=== PATIENT | male | born 1965 | race Caucasian/White ===

== ENCOUNTER 2017-05-03 10:54 | Day surgery (SDC) | payer OTHER ==
[2017-05-03] MEDS ORDERED: LACTATED RINGERS 1,000 ML IV ONE (11:15)
[2017-05-03] MEDS ORDERED: fentaNYL 100 MCG/2 ML VIAL IVP ONE (11:53)
[2017-05-03] MEDS ORDERED: MIDAZOLAM 2 MG/2 ML VIAL IVP ONE (11:53)
[2017-05-03 13:29] VITALS: BP 117/68
== END 2017-05-03 10:55 | disposition home or self-care (01) ==
LOC: SDS 10:54
PROVIDERS: ATTEND Surgery
PROC: 0DBN8ZX Excision of Sigmoid Colon, Via Natural or Artificial Opening Endoscopic, Diagnostic (ICD-10-PCS; principal; 2017-05-03 12:00)
DX: Z12.11 Encounter for screening for malignant neoplasm of colon (principal); D12.5 Benign neoplasm of sigmoid colon; I10 Essential (primary) hypertension; Z79.82 Long term (current) use of aspirin; Z87.891 Personal history of nicotine dependence
CPT/HCPCS: 45380; J7120

== ENCOUNTER 2023-04-27 09:12 | Outpatient (CLI) | payer OTHER ==
--- NOTE | 2023-04-27 17:21 | MRI Report ---
PROCEDURE: LUMBAR SPINE WO INDICATIONS: LUMBOSACRAL SPINAL STENOSIS TECHNIQUE: Noncontrast sagittal T1 spin echo and T2 fast echo, sagittal STIR, axial T1 and T2 fast spin echo thr ough the lumbar spine. In cases with scoliosis, additional coronal T2 fast spin echo may be performe d. COMPARISON: None. FINDINGS: Image quality: Excellent. Alignment and Curvature: There is trace retrolisthesis of L4 on L5. Bone Marrow: Marrow is of normal overall signal. Minimal reactive endplate changes are noted L4-5. No acute vertebral body compression fractures. Spinal Cord: Conus medullaris terminates at the L1 level. Visualized cord demonstrates normal signa l and size. Paraspinous Soft Tissues: No paravertebral masses. Simple bilateral renal cysts. Discs: Moderate desiccation present L4-5, minimal to mild L3-4. T12-L1: No disc bulge, spinal stenosis or foraminal narrowing. L1-L2: Mild disc bulge with mild spinal stenosis. Minimal bilateral foraminal narrowing with facet and ligamentum flavum hypertrophy. Overall appearance is stable. L2-L3: Mild disc bulge with mild to moderate spinal stenosis. Facet and ligamentum flavum hypertro phy are present as well as minimal epidural lipomatosis. Mild bilateral, right greater than left fora ana laura narrowing is present, minimally progressive on the left . Facet and ligamentum flavum hypertrop hy are present. Overall, stable interval exam. L3-L4: Mild disc bulge with moderate spinal stenosis. Moderate left and mild right foraminal narrow ing minimally progressive bilaterally. Facet and ligamentum flavum hypertrophy are present. L4-L5: Mild disc bulge with moderate spinal stenosis. Moderate bilateral foraminal narrowing right greater than left, stable. Facet and ligamentum flavum hypertrophy are present. L5-S1: Mild disc bulge without spinal stenosis or foraminal narrowing. No interval change. Facet an d ligamentum flavum hypertrophy. IMPRESSION: Multilevel degenerative changes with areas of progression as above. Multilevel spinal stenosis felt to be secondary to disc bulges with contributing effect of facet/liga ment of flavum arthropathy as well as epidural lipomatosis. However, short pedicles are noted also co ntributory towards spinal stenosis from a congenital aspect. Multilevel foraminal narrowing is present most notable at L4-5 secondary to facet arthropathy. Reviewed by: Mita Harris MD on 04/27/2023 5:20 PM PDT Approved by: Mita Harris MD on 04/27/2023 5:20 PM PDT Station ID: [id number]
== END 2023-04-27 09:13 | disposition home or self-care (01) ==
LOC: DI 09:12
PROVIDERS: ATTEND Orthopaedic Surgery Orthopaedic Surgery of the Spine
DX: M47.816 Spondylosis without myelopathy or radiculopathy, lumbar region (principal); M48.061 Spinal stenosis, lumbar region without neurogenic claudication; M51.36 Other intervertebral disc degeneration, lumbar region; M51.37 Other intervertebral disc degeneration, lumbosacral region

== ENCOUNTER 2023-06-28 06:24 | Day surgery (SDC) | payer OTHER ==
[2023-06-28] MEDS ORDERED: LACTATED RINGERS 1,000 ML IV ONE (06:39)
[2023-06-28] MEDS ORDERED: ceFAZolin 2 GM VIAL ONE (06:42)
[2023-06-28] MEDS ORDERED: BUPIVACAINE 0.5%-EPI 1:200000 PF 30 ML VIAL ONE (07:00)
[2023-06-28] MEDS ORDERED: BUPIVACAINE 0.5%-EPI 1:200000 PF 30 ML VIAL SUBQ ONE (07:02)
--- NOTE | 2023-06-28 07:06 | ANESTHESIA ---
Pre-Anesthesia VS, & Labs - Diagnosis right inguinal hernia - Procedure right inguinal hernia repair with mesh Vital Signs: Temp Pulse Resp BP Pulse Ox O2 Flow Rate 36.2 C L 62 14 136/82 H 98 06/28/23 06:39 06/28/23 06:39 06/28/23 06:39 06/28/23 06:39 06/28/23 06:39 Height: 6 ft Weight (kg): 92 kg Body Mass Index: 27.5 BMI Classification: Overweight - NPO >8 hours Home Medications and Allergies lisinopriL [Lisinopril] 20 mg PO DAILY 05/03/17 Allergies/Adverse Reactions: Allergies Allergy/AdvReac Type Severity Reaction Status Date / Time No Known Drug Allergies Allergy Verified 06/27/23 12:48 Anes History & Medical History - Anesthetic History Anesthesia Complications: reports: No previous complications - Medical History Cardiovascular: reports: Hypertension Pulmonary: reports: None Gastrointestinal: reports: None Urinary: reports: None Neuro: reports: None Musculoskeletal: reports: Osteoarthritis Endocrine/Autoimmune: reports: None Skin: reports: None Smoking Status: Never smoker Psychosocial: reports: Alcohol (2 drinks, 3x per week) History of Cancer?: No - Surgical History General: reports: Colonoscopy Eyes Ears Nose Throat (EENT): reports: Tonsil/Adenoidectomy Exam General: Alert, Oriented x3, Cooperative, No acute distress Dental: WNL Mouth Openin Fingerbreadth Neck Mobility: Normal Mallampati classification: I Thyromental Distance: 4-6 cm Mental/Cognitive Status: Alert/Oriented X3, Normal for patient Plan Anesthesia Type: General Consent for Procedure(s) Verified and Reviewed: Yes Code Status: Attempt Resuscitation ASA classification: 2-Mild systemic disease Is this case an emergency?: No
[2023-06-28] MEDS ORDERED: fentaNYL 100 MCG/2 ML VIAL ONE ×2 (07:22→08:11)
[2023-06-28] MEDS ORDERED: MIDAZOLAM 2 MG/2 ML VIAL ONE (07:22)
[2023-06-28] MEDS ORDERED: PROPOFOL 200 MG/20 ML VIAL IVP ONE (07:22)
[2023-06-28] MEDS ORDERED: DEXAMETHASONE 4 MG/ML VIAL ONE (07:51)
[2023-06-28] MEDS ORDERED: ONDANSETRON 4 MG/2 ML VIAL ONE (07:51)
[2023-06-28] MEDS ORDERED: NALOXONE 0.4 MG/ML VIAL IVP PRN (08:04)
[2023-06-28] MEDS ORDERED: fentaNYL 100 MCG/2 ML VIAL IVP PRN (08:04)
[2023-06-28] MEDS ORDERED: ONDANSETRON 4 MG/2 ML VIAL IVP PRN ×2 (08:04→09:47)
[2023-06-28] MEDS ORDERED: HYDROmorphone 0.5 MG/0.5 ML SYRINGE IVP PRN ×2 (08:04→09:47)
[2023-06-28] MEDS ORDERED: ATROPINE ABBOJECT 1 MG/10 ML SYRINGE IVP PRN (08:04)
[2023-06-28] MEDS ORDERED: MORPHINE 2 MG/ML CARPUJECT IVP PRN (08:04)
[2023-06-28] MEDS ORDERED: LACTATED RINGERS 800 ML IV ONE (08:56)
[2023-06-28] MEDS ORDERED: LACTATED RINGERS 1,000 ML IV SCH (09:00)
[2023-06-28 09:12] VITALS: O2SAT 98
--- NOTE | 2023-06-28 09:20 | OPERATIVE REPORT ---
Operative Report - General Procedure Date: 06/28/23 Planned Procedure: RIGHT inguinal herniorrhaphy Pre-Op Diagnosis: RIGHT inguinal hernia Procedure Performed: Indirect RIGHT inguinal herniorrhaphy and excision RIGHT cord lipoma Post Op Diagnosis: Indirect RIGHT inguinal hernia and cord lipoma - Procedure Note Primary Surgeon: Jc Reilly MD Anesthesia Provider: Amandeep Medina CRNA Anesthesia Technique: General LMA, Local (30 mL of half percent Marcaine with epinephrine) IV Fluids (mL): 1,100 Estimated Blood Loss (mL): 10 Drain/Tube Type: Other Complications: None. - Other Other Information/Narrative: After verbal and written informed consent was obtained detailing the operation, the alternatives the operation including no operation, risks of infection, bleeding requiring transfusion with its risks, nerve injury, and and after I met with the patient confirming the surgery and the site of surgery, the patient was brought to the operative suite and placed supine on the operating table. Great care was taken to avoid pressure points to prevent pressure necrosis or nerve injury. Monitoring devices were applied along with TEDs and pneumatic compression stockings (to prevent DVT). The patient received preoperative antibiotics for surgical prophylaxis. Amandeep Medina CRNA sedated and anesthetized the patient for the entire procedure. The patient was prepped and draped in the usual sterile manner. With the patient draped my initials were clearly visible. A "time in" then confirmed that the patient was identified with 3 identifiers (name, date, and medical record number), the history and physical was updated and in the chart, the signed consent confirming the procedure was in the chart, the patient was in the correct position, the aforementioned prophylactic measures were in place or given, we had the correct personnel and equipment to complete the procedure and that anesthesia and the surgical team were given an opportunity to express any concerns. With the agreement of everyone in the room we proceeded with the operation. A standard inguinal incision was made and dissection was carried down to the external oblique aponeurosis using a combination of Metzenbaum scissors and Bovie electrocautery. The external oblique aponeurosis was cleared of overlying adherent tissue, and the external ring was delineated. The external oblique was incised with a scalpel and this incision was carried down to the external ring using Metzenbaum scissors. Care was taken not to injure the ilioinguinal nerve. Having expose the inguinal canal, the cord structures were from the canal using blunt dissection and a Carlos Alberto drain was placed around the cord structures at the level of the pubic tubercle. This [place] drain was then used to retract the cord structures as needed. Adherent cremasteric muscle was dissected free from the cord using Bovie electrocautery. The cord was then explored using a combination of sharp and blunt dissection, and an indirect sac was found. The sac was then dissected back to the internal ring and high ligated with a 3-0 Vicryl suture. This was then transected the stump cauterized and allowed to retract back into the abdomen. A PerFix plug (ref#[id number], Lot#[id number], use by 2027-07-02) was then inserted into the internal ring and secured to the edge of the internal ring using a 2-0 PDS. Dissection along the cord structures found a lipoma that was dissected back to the internal ring, ligated with 3-0 Vicryl, transected, and the stump cauterized and allowed to retract back into the abdomen. The PerFix onlay patch was then secured to the pubic tubercle with a 2 0-PDS U stitch. The mesh was then secured to the conjoined tendon superiorly using interrupted 2-0 PDS sutures and secured to the shelving edge of Poupart's ligament inferiorly using interrupted 2-0 PDS sutures. The mesh was secured around the cord structures loosely with a 2-0 PDS suture thus creating a new internal ring. The Carlos Alberto drain was then removed. Meticulous hemostasis was obtained using Bovie electrocautery. The wound was then injected superficially and deep using 30 mL of half percent Marcaine with epinephrine. The incision the external oblique was approximated using 3-0 Vicryl in a running fashion thus reforming the external ring. The skin incision was approximated with 4-0 Monocryl in a subcuticular fashion. The skin was cleaned of its prep and Dermabond was applied. At this point a timeout was performed that confirmed that all counts were correct x2, the procedure that was performed, the blood loss, the IV fluids administered, the patient's condition, and any concerns of the operating team had. Having tolerated the procedure well, the patient was taken recovery room in good and stable condition. Gentle downward traction ensured the testes were well seated in the scrotum. The plan is for outpatient discharge when the patient is adequately recovered. CPT 83391 (inguinal herniorrhaphy) CPT 64428 (excision cord lipoma) This document was created in part using voice recognition technology. Because of the inherent limitations of the system, occasional same sounding word substitutions and grammatical errors do occur and persist despite proofreading. Please read this document for content.
[2023-06-28] MEDS ORDERED: HYDROcod/ACETAM 5/325 MG TABLET PO PRN (09:47)
--- NOTE | 2023-06-28 10:41 | ANESTHESIA POST OP EVALUATION ---
Anesthesia Post Eval - Post Anesthesia Eval Vitals: Last Vital Signs Temp 36.6 C 06/28/23 10:29 Pulse 58 L 06/28/23 10:29 Resp 12 06/28/23 10:29 BP 120/79 06/28/23 10:29 Pulse Ox 98 06/28/23 10:29 O2 Flow Rate CV Function Including HR & BP: Stable Pain Control: Satisfactory Nausea & Vomiting: Negative Mental Status: Baseline Respiratory Status: Airway Patent Hydration Status: Satisfactory Anesthesia Complications: None
[2023-06-28 10:49] VITALS: BP 120/79
== END 2023-06-28 06:25 | disposition home or self-care (01) ==
LOC: SDS 06:24
PROVIDERS: ATTEND Surgery
DX: K40.90 Unilateral inguinal hernia, without obstruction or gangrene, not specified as recurrent (principal); D17.6 Benign lipomatous neoplasm of spermatic cord; Z87.891 Personal history of nicotine dependence
CPT/HCPCS: 49505; 55520; C1781; J7120

== ENCOUNTER 2024-05-14 08:03 | Day surgery (SDC) | payer OTHER ==
[2024-05-14] MEDS: LACTATED RINGERS 1,000 ML IV ONE (08:20)
[2024-05-14] MEDS ORDERED: PROPOFOL 500 MG/50 ML 500 MG/50 ML VIAL ONE (09:02)
[2024-05-14] MEDS ORDERED: LIDOCAINE-MPF 2% 5 ML VIAL ONE (09:02)
--- NOTE | 2024-05-14 09:17 | ANESTHESIA ---
Pre-Anesthesia VS, & Labs - Diagnosis hx polyps - Procedure colonoscopy Height: 6 ft Weight (kg): 90.5 kg Body Mass Index: 27.0 BMI Classification: Overweight - NPO >8 hours Last Fluid Intake: am prep - Lab Results Lab results reviewed: Yes Home Medications and Allergies lisinopriL [Lisinopril] 20 mg PO DAILY 05/03/17 Allergies/Adverse Reactions: Allergies Allergy/AdvReac Type Severity Reaction Status Date / Time No Known Drug Allergies Allergy Verified 06/27/23 12:48 Anes History & Medical History - Anesthetic History Anesthesia Complications: reports: No previous complications Family history of Anesthesia Complications: Denies Family history of Malignant Hyperthermia: Denies - Medical History Cardiovascular: reports: Hypertension Pulmonary: reports: None Gastrointestinal: reports: None Urinary: reports: None Neuro: reports: None Musculoskeletal: reports: None Endocrine/Autoimmune: reports: None Skin: reports: None Smoking Status: Never smoker History of Cancer?: No - Surgical History General: reports: Colonoscopy, Other Eyes Ears Nose Throat (EENT): reports: Tonsil/Adenoidectomy Exam General: Alert, Oriented x3, Cooperative Dental: WNL Mouth Openin Fingerbreadth Neck Mobility: Reduced (difficult to the left) Mallampati classification: II Thyromental Distance: 4-6 cm Respiratory: Lungs clear, Normal breath sounds, No respiratory distress Cardiovascular: Regular rate Neurological: Normal speech Mental/Cognitive Status: Alert/Oriented X3, Normal for patient Cognitive Status: Within normal limits Plan Anesthesia Type: Total IV Consent for Procedure(s) Verified and Reviewed: Yes Code Status: Attempt Resuscitation ASA classification: 2-Mild systemic disease Is this case an emergency?: No
[2024-05-14] MEDS: LACTATED RINGERS 250 ML IV ONE (10:03)
[2024-05-14 10:27] VITALS: O2SAT 97
[2024-05-14 10:39] VITALS: BP 101/70
--- NOTE | 2024-05-14 15:02 | ANESTHESIA POST OP EVALUATION ---
Anesthesia Post Eval - Post Anesthesia Eval Vitals: Last Vital Signs Temp 36.3 C L 05/14/24 10:30 Pulse 55 L 05/14/24 10:30 Resp 16 05/14/24 10:30 BP 101/70 05/14/24 10:30 Pulse Ox 97 05/14/24 10:30 O2 Flow Rate CV Function Including HR & BP: Stable Pain Control: Satisfactory Nausea & Vomiting: Negative Mental Status: Baseline Respiratory Status: Airway Patent Hydration Status: Satisfactory Anesthesia Complications: None
== END 2024-05-14 08:04 | disposition home or self-care (01) ==
LOC: SDS 08:03
PROVIDERS: ATTEND Surgery
DX: Z12.11 Encounter for screening for malignant neoplasm of colon (principal); K64.1 Second degree hemorrhoids; Z86.010 Personal history of colon polyps; I10 Essential (primary) hypertension
CPT/HCPCS: 45378; J7120